=== PATIENT | male | born 1990 | race Caucasian/White ===

== ENCOUNTER 2016-10-24 22:31 | Emergency (ER) | payer OTHER ==
[~2016-10-24] VITALS: Ht 172.7 cm; Wt 83.3 kg
[2016-10-24 22:34] VITALS: Ht 172.7 cm; Wt 83.3 kg
[2016-10-24] MEDS ORDERED: CEPH500C PO (22:45)
[2016-10-24] MEDS ORDERED: CEPHALEXIN 500MG HOME PACK 1 EA BTL PO ONE (22:45)
[2016-10-24] MEDS ORDERED: SULF800T23 PO (22:45)
[2016-10-24] MEDS ORDERED: SEPTRA DS HOME PACK 1 EA VIAL PO ONE (22:45)
--- NOTE | 2016-10-24 22:50 | EMERGENCY ROOM VISIT NOTE ---
History First contact with patient: 22:36 Chief Complaint: OTHER COMPLAINT Stated Complaint: PIMPLE ON FOREHEAD, SWOLLEN, RING AROUND IT History of Present Illness The patient is a 26 year old male who presents to the Emergency Room with complaints of a swollen pimple on his left forehead region. The patient reports noticing a pimple 2 days ago. He tried to squeeze it yesterday without any drainage. He then reports that the redness and swelling significantly worsened. He denies any fevers, chills or headache. He reports having similar pimples that frequent break out on his back, but never his face. He denies any prior history of MRSA. He currently denies any pain. Review of Systems 10 system review was performed and was negative except for pertinent positives and negatives as indicated in history of present illness Past Medical/Surgical History Medical Problems: (1) No significant past medical history Family History Cancer Social History Smoking Status: Never Smoker Alcohol Use: occasionally Drug Use: none Marital Status: single Housing Status: lives with roommate Occupation Status: employed Current/Historical Medications Scheduled Cephalexin Monohydrate (Keflex), 500 MG PO QID Sulfa/Trimethoprim (Bactrim Ds 800MG/160MG), 1 TAB PO BID Allergies Coded Allergies: No Known Allergies (Unverified Allergy, Mild, 04/26/06) Physical Exam Vital Signs Date Time Temp Pulse Resp B/P Pulse Ox O2 Delivery O2 Flow Rate FiO2 10/24/16 22:34 36.9 92 18 156/85 96 Room Air Physical Exam CONSTITUTIONAL: Healthy and well nourished. Alert and oriented X 3 with positive affect. HEENT: Examination shows a pea-sized nodule on the left forehead. No purulent drainage, pointing, fluctuance or significant peripheral induration noted. Mild nasal erythema is noted. Pupils equal, round and reactive. EOMs intact without discomfort. NECK: Full active range of motion without discomfort. LYMPHATICS: No cervical chain adenopathy. RESPIRATORY: Clear to auscultation bilaterally with no wheezing, crackles, rhonchi or stridor. CARDIOVASCULAR: Regular rate and rhythm with no murmurs, rubs or gallops. INTEGUMENTARY: No rash or other significant dermatologic conditions noted. NEUROLOGIC: No focal neurologic deficits noted. Facial sensations are intact. Medical Decision & Procedures ED Course Patient history and physical exam were performed. Nurse's notes were reviewed. The patient was provided a home pack and prescription for Keflex and Bactrim DS antibiotics. The patient was encouraged to apply a warm moist compress, and bacitracin bandage to help promote drainage. Ibuprofen and Tylenol as needed for pain. Return to the emergency department for any progressively worsening infection or fever. The patient was happy with plan of care, voiced understanding of all discharge instructions, and denied any pain at the time of discharge. Medical Decision Impression Primary Impression: Facial cellulitis Departure Information Dispostion Home / Self-Care Prescriptions Sulfa/Trimethoprim (Bactrim Ds 800MG/160MG) Tab 1 TAB PO BID, #14 TAB Prov: Vlad Perez PA 10/24/16 Cephalexin Monohydrate (Keflex) 500 Mg Cap 500 MG PO QID for 7 Days, #28 CAP Prov: Vlad Perez PA 10/24/16 Forms HOME CARE DOCUMENTATION FORM, IMPORTANT VISIT INFORMATION Patient Instructions [facility] Additional Instructions Complete all Keflex and Bactrim DS antibiotics as prescribed. Intermittently apply a warm moist compress, and apply an antibiotic ointment and bandage to keep the area soft in order to promote drainage. Ibuprofen 800 mg and/or Tylenol 1000 mg every 8 hours. You may also alternate these medications for more effective pain relief: Ibuprofen --4 HRS--> Tylenol --4 HRS--> ibuprofen --4 HRS--> Tylenol .... Return to the emergency department for any progressively worsening infection or developing fever.
[2016-10-24 22:59] VITALS: BP 156/85; PULSE 92; TEMP 36.9; O2SAT 96
== END 2016-10-24 23:00 | disposition home or self-care (01) ==
LOC: C.EDB 22:34 → C.EDA 23:00
DX: L03.211 Cellulitis of face (principal)

== ENCOUNTER 2017-02-11 21:43 | Emergency (ER) | payer OTHER ==
[~2017-02-11] VITALS: Ht 170.2 cm; Wt 81.2 kg
[~2017-02-11 21:43] MED LIST: SULF800T23 PO
[2017-02-11 21:48] VITALS: BP 142/80; PULSE 89; TEMP 36.7; O2SAT 97; Ht 170.2 cm; Wt 81.2 kg
--- NOTE | 2017-02-11 22:14 | DIAGNOSTIC IMAGING REPORT ---
LEFT ANKLE MIN 3 VIEWS ROUTINE CLINICAL HISTORY: Left ankle pain COMPARISON: None FINDINGS: Alignment of the left ankle is anatomic. No fracture or osseous lesion is identified. Talar dome is intact. Joint spaces are preserved. There is mild lateral ankle soft tissue swelling. IMPRESSION: 1. No acute fracture or dislocation of the left ankle. 2. Mild lateral ankle soft tissue swelling. Electronically signed by: Jeff Mcarthur M.D. 02/11/2017 10:13 PM Dictated Date/Time: 02/11/2017 10:12 PM
--- NOTE | 2017-02-11 22:35 | EMERGENCY ROOM VISIT NOTE ---
ED Visit Note First contact with patient: 21:53 Chief complaint: Left ankle pain. HPI: This 26-year-old white male presents to the emergency room for evaluation of his left ankle. The patient injured the ankle on evening when he inverted the ankle and had immediate onset of pain. Since that time, they have had persistent pain over the lateral portion of the ankle. He denies any numbness or tingling. Pain is worse with weight-bearing. He has been walking with a limp. no knee or hip pain. No pop or snap with injury. Treatment has consisted of ice provided in the ER. No prior history of significant ankle injury. Lateral swelling has developed. Pain is 7/10. REVIEW OF SYSTEM: HEENT: No dizziness, visual problems, hearing loss, tinnitus. There is no difficulty swallowing and no oral lesions are present. PULMONARY: No cough, shortness of breath, sputum production or hemoptysis. CARDIOVASCULAR: No chest pain, palpitations, shortness of breath or peripheral edema. GASTROINTESTINAL: No diarrhea, constipation, nausea, vomiting, or abdominal pain. GENITOURINARY: No dysuria, frequency, urgency or nocturia. NEUROLOGIC: No weakness, muscle tenderness, epilepsy or history of neurological problems. MUSCULOSKELETAL: No history of joint tenderness/swelling. No history of arthritis or arthralgias. SKIN: No rashes or lesions. ENDOCRINE: No history of diabetes, thyroid disorders, abnormal hair growth. PAST MEDICAL HISTORY: Supplemental sheet was reviewed and signed. 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 Single. Positive EtOH use. PHYSICAL EXAM: Vitals: Afebrile. Reviewed and filed in patient's chart General: Well-developed, well-nourished, young white male, in obvious discomfort. No acute distress. He is sitting on a bed. Alert and oriented. Skin:Warm and dry with good turgor. No rashes or lesions. No erythema. The patient is not diaphoretic. No abrasions. Edema is present over the lateral ankle. Musculoskeletal: Left ankle evaluation reveals no pain with palpation across the knee or proximal tibia or fibula. There is pain with palpation over the lateral malleolus and the lateral ligaments. No pain over the medial malleolus or deltoid ligament. Achilles' tendon is palpated to its entirety and found to be intact and without defect. Normal David test. No pain with palpation of the calcaneus, fifth metatarsal base, midfoot, forefoot, or toes. Motor function to the toes is intact and unremarkable. Motor function to the ankle is intact but range of motion is limited by pain. Strength is 5/5 for resisted motion. Neurologic: Gross sensation is intact across all aspects of the foot and ankle via soft touch. Peripheral pulses are 2+. Data: Radiographic images of the ankle were obtained today and were reviewed by me as well as radiology. They are unremarkable for fracture or other bony abnormality. IMPRESSION: Left ankle sprain. PLAN: The patient was educated regarding today's findings. Conservative care measures were discussed. Patient was given compressigrip for edema control and will use this for the next 5 days. Ankle gel splint was also applied and will be used for support for the next 3 weeks. It may be removed for bathing and sleep. It should be used for a few additional weeks for sporting events only. Crutches were fitted and crutch instruction was reviewed. Discontinue crutch use when he is able to walk without a limp. Weight-bear as tolerable. Gentle motion daily. Ice and elevate intermittently over the next 3 days, after which they may switch to moist heat. Lower leg should be elevated at night during sleep. Tylenol and ibuprofen every 6 hours as needed for discomfort. Sprain handout was provided. Return to the ER for any acute changes. Follow-up with his PCP or orthopedist if not improving in 5 to 7 days. Current/Historical Medications No Active Prescriptions or Reported Meds Allergies Coded Allergies: No Known Allergies (Unverified , 10/24/16) Vital Signs Date Time Temp Pulse Resp B/P (MAP) Pulse Ox O2 Delivery O2 Flow Rate FiO2 02/11/17 21:48 36.7 89 16 142/80 97 Room Air Departure Information Prescriptions No Active Prescriptions or Reported Meds Referrals No Doctor, Assigned (PCP) Forms HOME CARE DOCUMENTATION FORM, IMPORTANT VISIT INFORMATION Patient Instructions [facility] [employer] [place] [employer]
== END 2017-02-11 23:05 | disposition home or self-care (01) ==
LOC: C.EDB 21:44 → C.EDD 23:05
DX: S93.402A Sprain of unspecified ligament of left ankle, initial encounter (principal); X58.XXXA Exposure to other specified factors, initial encounter

== ENCOUNTER 2022-11-03 01:00 | Inpatient (IN) ==
[2022-11-03] MEDS ORDERED: ONDANSETRON INJ 2 MG/ML 2 ML VIAL IV STA (01:19)
[2022-11-03] MEDS ORDERED: MoRPHine SULFATE 4 MG/ML 1 ML CARP\\VIAL IV PRN ×3 (01:19→15:59)
[2022-11-03] MEDS ORDERED: SODIUM CHLORIDE 0.9% 1000ML 1,000 ML IV SCH (01:30)
[2022-11-03 01:57] LABS: Basophils # (auto) 0.03 K/uL (0-0.2); Basophils % (auto) 0.5 %; Eosinophils # (auto) 0.07 K/uL (0-0.50); Eosinophils % (auto) 1.1 %; Hematocrit (blood only) 44.9 % (42.0-52.0); Hemoglobin 15.4 g/dl (14.0-18.0); Lymphocytes # (auto) 2.82 K/uL (1.2-3.4); Lymphocytes % (auto) 44.5 %; Mean Corpuscular Hemoglobin 31.2 pg (25.0-34.0); Mean Corpuscular Hgb Conc 34.3 g/dL (32.0-36.0); Mean Corpuscular Volume 91.1 fL (80.0-100.0); Mean Platelet Volume 9.3 fL (9.4-12.4); Monocytes # (auto) 0.49 K/uL (0.11-0.59); Monocytes % (auto) 7.7 %; Neutrophils # (auto) 2.93 K/uL (1.40-6.50); Neutrophils % (auto) 46.2 %; Platelet Count 250 K/uL (130-400); RDW Standard Deviation 40.2 fL (36.4-46.3); Red Blood Count 4.93 M/uL (4.70-6.10); White Blood Count 6.34 K/ul (4.8-10.8)
--- NOTE | 2022-11-03 02:18 | Emergency Department Note ---
History of Present Illness General Chief complaint: Abdominal Pain Stated complaint: STOMACH PAIN,SHARP PAIN Time Seen by Provider: 11/03/22 01:12 History of Present Illness Maximum Pain Intensity: 10 This is a 32-year-old male presenting to the emergency department for evaluation of right-sided abdominal pain that he rates a 10/10. The patient states that he was asleep and awoke with the pain. The pain does not seem to radiate but is primarily on the right side of the abdomen. He is nauseated without vomiting. He has never had pain like this in the past. The patient is usually healthy. He has not taken anything [id number] for symptoms. He does not report a history of abdominal surgery in the past. No recent travel history. No fevers. Home Medications Medication Instructions Recorded Confirmed Type calcium carbonate 200 mg calcium 400 - 600 mg PO DIRECTED PRN GI 11/03/22 11/03/22 History (500 mg) chewable tablet (Tums) UPSET/INDIGESTION/HEARTBURN Allergies Allergy/AdvReac Type Severity Reaction Status Date / Time ampicillin Allergy Intermediate HIVES Verified 11/03/22 01:30 sulbactam Allergy Intermediate HIVES Verified 11/03/22 01:30 Past Med/Surg History Medical History No significant medical problems Surgical History History of surgery on arm Social History Smoking Status: Current every day smoker Tobacco Type: Cigarettes Preferred Language: Bengali Feels Safe at Home: Yes Review of Systems A total of 10 systems reviewed and were otherwise negative Physical Exam Vital Signs Vital Signs - 24 hr 11/03/22 01:06 11/03/22 01:46 11/03/22 01:46 Temperature 36.8 C Temperature Source Temporal Artery Scan Pulse Rate 71 57 L 63 Respiratory Rate 18 18 Respiratory Effort / Characteristics Non-Labored Spontaneous Respiratory Depth Normal Respiratory Pattern Regular Blood Pressure 127/73 127/72 Blood Pressure Mean 91 90 Blood Pressure Position Sitting Pulse Oximetry 100 96 Oxygen Delivery Method Room Air Room Air Sepsis Recent Fever Within 48 Hours No Sepsis New/Unexplained Change in Mental Status N/A Sepsis Action Taken by Nursing No Action Required 11/03/22 02:00 11/03/22 02:30 11/03/22 03:00 Temperature Temperature Source Pulse Rate 53 L 64 68 Respiratory Rate 13 18 17 Respiratory Effort / Characteristics Respiratory Depth Respiratory Pattern Blood Pressure 126/64 124/68 124/73 Blood Pressure Mean 84 86 90 Blood Pressure Position Pulse Oximetry 97 98 98 Oxygen Delivery Method Room Air Room Air Room Air Sepsis Recent Fever Within 48 Hours Sepsis New/Unexplained Change in Mental Status Sepsis Action Taken by Nursing 11/03/22 03:30 11/03/22 04:00 11/03/22 04:30 Temperature Temperature Source Pulse Rate 58 L 64 59 L Respiratory Rate 17 19 15 Respiratory Effort / Characteristics Respiratory Depth Respiratory Pattern Blood Pressure 124/73 127/68 136/72 Blood Pressure Mean 90 87 93 Blood Pressure Position Pulse Oximetry 96 97 97 Oxygen Delivery Method Room Air Room Air Room Air Sepsis Recent Fever Within 48 Hours Sepsis New/Unexplained Change in Mental Status Sepsis Action Taken by Nursing VITALS: Vitals are noted on the nurse's note and reviewed by myself. Vital signs stable. GENERAL: Well-developed, well-nourished, white male, who is moderately uncomfortable appearing on exam. He is splinting the right side abdomen. HEAD: Normocephalic atraumatic. NECK: Supple without nuchal rigidity. No lymphadenopathy. No thyromegaly. Cervical spine is nontender. HEART: Regular rate and rhythm without murmurs gallops or rubs. LUNGS: Clear to auscultation bilaterally without wheezes, rales or rhonchi. No retractions or accessory muscle use. ABDOMEN: Positive normal bowel sounds x 4. Soft, with moderate right-sided tenderness on palpation. No lower tenderness. No rebound tenderness. Course Administered Medications Lactated Ringer's (Lr) 1,000 mls @ 100 mls/hr IV .Q10H VALENTINA Stop: 12/03/22 04:29 Last Admin: 11/03/22 05:01 Dose: 100 mls/hr Documented By: ANNIE Ciprofloxacin (Cipro / D5w) 400 mg in 200 mls @ 100 mls/hr IV NOW STA; Protocol Stop: 11/03/22 06:22 Last Admin: 11/03/22 05:01 Dose: 100 mls/hr Documented By: ANNIE Morphine Sulfate (Morphine Sulfate 4 Mg/Ml 1 Ml Carp\Vial) 4 mg IV Q30M PRN PRN Reason: Pain Stop: 11/17/22 01:18 Last Admin: 11/03/22 01:37 Dose: 4 mg Documented By: ANNIE Discontinued Medications Sodium Chloride (Nss 1000ml) 1,000 mls @ 999 mls/hr IV .Q1H1M VALENTINA Stop: 11/03/22 02:30 Last Infusion: 11/03/22 02:50 Dose: 0 mls/hr Documented By: Admin: 11/03/22 01:38 Dose: 999 mls/hr Documented By: ANNIE Ioversol (Optiray 350 100ml) 100 ml IV ONCE ONE Stop: 11/03/22 03:18 Last Admin: 11/03/22 03:18 Dose: 86 ml Documented By: ALEKSANDRA Ondansetron HCl (Ondansetron Inj 2 Mg/Ml 2 Ml Vial) 4 mg IV NOW STA Stop: 11/03/22 01:20 Last Admin: 11/03/22 01:37 Dose: 4 mg Documented By: ANNIE Medical Decision Making Differential Diagnosis Differential diagnosis: Etiologies such as biliary colic, cholecystitis, hepatitis, pancreatitis, cardiac disease, pancreatitis, gastritis, peptic ulcer disease, appendicitis, cystitis, diverticulitis, mesenteric ischemia, inflammatory bowel disease, i leus, bowel obstruction, testicular/adnexal torsion, aortic pathology, shingles, as well as others were considered Laboratory Data 11/03/22 01:39 11/03/22 01:39 Lab Results 11/03/22 11/03/22 Range/Units 01:39 01:39 WBC 6.34 (4.8-10.8) K/ul RBC 4.93 (4.70-6.10) M/uL Hgb 15.4 (14.0-18.0) g/dl Hct 44.9 (42.0-52.0) % MCV 91.1 (80.0-100.0) fL MCH 31.2 (25.0-34.0) pg MCHC 34.3 (32.0-36.0) g/dL RDW Std Deviation 40.2 (36.4-46.3) fL RDW Coeff of Mlalory 12.0 (11.5-14.5) % Plt Count 250 (130-400) K/uL MPV 9.3 L (9.4-12.4) fL Immature Gran % (Auto) 0.0 % Neut % (Auto) 46.2 % Lymph % (Auto) 44.5 % [place] % (Auto) 7.7 % Eos % (Auto) 1.1 % Baso % (Auto) 0.5 % Neut # (Auto) 2.93 (1.40-6.50) K/uL Lymph # (Auto) 2.82 (1.2-3.4) K/uL [place] # (Auto) 0.49 (0.11-0.59) K/uL Eos # (Auto) 0.07 (0-0.50) K/uL Baso # (Auto) 0.03 (0-0.2) K/uL Immature Gran # (Auto) 0.00 L (0.01-0.20) K/uL Sodium 140 (136-145) mmol/L Potassium 3.6 (3.5-5.1) mmol/L Chloride 104 (98-107) mmol/L Carbon Dioxide 31 (21-32) mmol/L Anion Gap 5 (3-11) BUN 16 (6-23) mg/dl Creatinine 1.23 (0.6-1.4) mg/dl Est Cr Clr Drug Dosing 93.1 ml/min Est GFR ( Amer) 90.1 ml/min Est GFR (Non-Af Amer) 77.7 ml/min BUN/Creatinine Ratio 13.0 (10-20) Glucose 118 H (70-99(Fasting)) mg/dl Calcium 10.0 (8.5-10.1) mg/dl Magnesium 2.0 (1.7-2.4) mg/dl Total Bilirubin 0.7 (0.2-1.0) mg/dl AST 38 (13-39) U/L ALT 64 H (7-52) U/L Alkaline Phosphatase 59 (34-104) U/L Total Protein 7.5 (6.0-8.3) gm/dl Albumin 4.6 (3.4-5.0) gm/dl Globulin 2.9 (2.5-4.0) gm/dl Albumin/Globulin Ratio 1.6 (0.9-2) Lipase 10 L (11-82) U/L Imaging Data Radiologist's Impression: Abdomen/Pelvis CT 11/03/22 01:19 CR Exam(s): CT ABDOMEN + PELVIS With Contrast IV Amt: 86 ml optiray 350 EXAM: CT Abdomen and Pelvis With Intravenous Contrast CLINICAL HISTORY: Reason for exam: right flank/ruq abd pain. TECHNIQUE: Axial computed tomography images of the abdomen and pelvis with intravenous contrast. CTDI is 9.35 mGy and DLP is 472.92 mGy-cm. CONTRAST: Patient received 86 ml optiray 350 of IV contrast COMPARISON: No relevant prior studies available. FINDINGS: Lung bases: Unremarkable. No mass. No consolidation. ABDOMEN: Liver: Unremarkable. No mass. Gallbladder and bile ducts: Cholelithiasis with gallbladder wall thickening. Findings can be seen with cholecystitis. Consider HIDA imaging if there is further concern. No ductal dilation. Pancreas: Unremarkable. No mass. No ductal dilation. Spleen: Unremarkable. No splenomegaly. Adrenals: Unremarkable. No mass. Kidneys and ureters: Unremarkable. No obstructive calculus in the interpolar left kidney measuring up to 7 mm. Stomach and bowel: Unremarkable. No mucosal thickening. No evidence of bowel obstruction. PELVIS: Appendix: Normal appendix. Bladder: Unremarkable. No mass. Reproductive: Unremarkable as visualized. ABDOMEN and PELVIS: Intraperitoneal space: Unremarkable. No free air. No significant fluid collection. Bones/joints: No acute fracture. No dislocation. Soft tissues: Unremarkable. Vasculature: Unremarkable. No abdominal aortic aneurysm. Lymph nodes: Unremarkable. No enlarged lymph nodes. IMPRESSION: Cholelithiasis with gallbladder wall thickening. Findings can be seen with cholecystitis. Consider HIDA imaging if there is further concern. Communications: Verify Receipt Electronically signed by: Sebastian Urban MD 11/03/22 03:57 AM [facility] Narrative Physical exam and history were performed. Nursing notes, EMR, and Medication List were personally reviewed. No social concerns were identified as barriers to patients care. Patient appears to have right-sided abdominal pain bringing him to the ER. He is uncomfortable on presentation. IV access was established and labs were obtained. He was hydrated normal saline and given IV morphine and IV Zofran for comfort. Because of his symptoms he was sent to CT scan for imaging. Blood work is as above and was reviewed. He does not have a significantly elevated white blood cell count, gross anemia, bandemia, or significant electrolyte imbalance. Lipase and transaminases are not diagnostic. CT scan was performed and informally interpreted myself and read by radiology. Imaging does show a large gallstone and findings concerning for acute cholecystitis. Patient was updated regarding his findings. Clinically he does seem to have acute cholecystitis. His pain is well controlled with the morphine. COVID swab was performed. Case was discussed with the on-call surgical team. Patient was evaluated at bedside by Ike Rodgers PA-C. Please see Mr. Claudio's dictation for further patient course, plan, and disposition. The chart was completed utilizing [employer] Voice Recognition Software. Grammatical errors, random word insertions, pronoun errors, and incomplete sentences are an occasional consequence of this system due to software limitations, ambient noise, and hardware issues. Any formal questions or concerns about the content, text, or information contained within the body of this dictation should be directly addressed to the provider for clarification. . Impression & Plan Acute cholecystitis Discharge Plan Visit Data Chief Complaint: Abdominal Pain Stated Complaint: STOMACH PAIN,SHARP PAIN ED Provider: Dea Hughes ED Midlevel Provider: Antnoi Tyler Discharge Problem: Acute cholecystitis Forms Stand Alone Forms: [facility] [address] Prescriptions Prescriptions: No Action calcium carbonate [Tums] 200 mg calcium (500 mg) Tablet,Chewable 400 - 600 mg PO DIRECTED PRN (Reason: GI UPSET/INDIGESTION/HEARTBURN) Referrals Referrals: PCP,NO [Primary Care Provider] -
[2022-11-03 02:52] LABS: Albumin Globulin Ratio 1.6 (0.9-2); Albumin Level 4.6 gm/dl (3.4-5.0); Bilirubin,Total 0.7 mg/dl (0.2-1.0); Creatinine Clr Calc Pharmacy 93.1 ml/min; Est GFR (African American) 90.1 ml/min; Est GFR (Non-African American) 77.7 ml/min; Globulin 2.9 gm/dl (2.5-4.0); Potassium 3.6 mmol/L (3.5-5.1); Total Protein 7.5 gm/dl (6.0-8.3)
[2022-11-03] MEDS ORDERED: OPTIRAY 350 100ml IV ONE (03:17)
--- NOTE | 2022-11-03 03:58 | CT Scan Report ---
Exam(s): CT ABDOMEN + PELVIS With Contrast IV Amt: 86 ml optiray 350 EXAM: CT Abdomen and Pelvis With Intravenous Contrast CLINICAL HISTORY: Reason for exam: right flank/ruq abd pain. TECHNIQUE: Axial computed tomography images of the abdomen and pelvis with intravenous contrast. CTDI is 9.35 mGy and DLP is 472.92 mGy-cm. CONTRAST: Patient received 86 ml optiray 350 of IV contrast COMPARISON: No relevant prior studies available. FINDINGS: Lung bases: Unremarkable. No mass. No consolidation. ABDOMEN: Liver: Unremarkable. No mass. Gallbladder and bile ducts: Cholelithiasis with gallbladder wall thickening. Findings can be seen with cholecystitis. Consider HIDA imaging if there is further concern. No ductal dilation. Pancreas: Unremarkable. No mass. No ductal dilation. Spleen: Unremarkable. No splenomegaly. Adrenals: Unremarkable. No mass. Kidneys and ureters: Unremarkable. No obstructive calculus in the interpolar left kidney measuring up to 7 mm. Stomach and bowel: Unremarkable. No mucosal thickening. No evidence of bowel obstruction. PELVIS: Appendix: Normal appendix. Bladder: Unremarkable. No mass. Reproductive: Unremarkable as visualized. ABDOMEN and PELVIS: Intraperitoneal space: Unremarkable. No free air. No significant fluid collection. Bones/joints: No acute fracture. No dislocation. Soft tissues: Unremarkable. Vasculature: Unremarkable. No abdominal aortic aneurysm. Lymph nodes: Unremarkable. No enlarged lymph nodes. IMPRESSION: Cholelithiasis with gallbladder wall thickening. Findings can be seen with cholecystitis. Consider HIDA imaging if there is further concern. Communications: Verify Receipt Electronically signed by: Sebastian Urban MD 11/03/22 03:57 AM
[2022-11-03] MEDS ORDERED: CIPROFLOXACIN / D5W 400 MG/200 ML BAG IV STA (04:23)
[2022-11-03] MEDS ORDERED: ONDANSETRON INJ 2 MG/ML 2 ML VIAL IV PRN ×2 (04:23→12:53)
[2022-11-03] MEDS ORDERED: ACETAMINOPHEN 1,000 MG/100 ML VIAL IV PRN (04:23)
--- NOTE | 2022-11-03 04:23 | History & Physical Report ---
Date of Service November 03, 2022 Assessment & Plan (1) Cholecystitis: Plan: Due to the patient's imaging and clinical presentation we will admit him to the hospital proceeding as follows: We will implement n.p.o. status Provide analgesics Provide antiemetics We will provide IV fluid for hydration We will initiate antibiotics in the form of Cipro and Flagyl; will use these medications as he is allergic to penicillin We will get a gallbladder ultrasound to better delineate his biliary anatomy As it does appear the patient has acute cholecystitis and has cholelithiasis on CT scan we will tentatively plan on cholecystectomy with Dr. Saldana today. Additional recommendations to be forthcoming based on operative findings and his postoperative recovery thereafter We will use SCDs for DVT prevention, no chemical means due to planned surgery He will be a level 1 full code History of Present Illness Chief Complaint: Abdominal pain Primary Care Provider: NO PCP This is a 32-year-old male who presented to [facility] secondary to abdominal pain. He notes that the pain woke him up from sleep and was really unrelated to anything he ate last evening. He does note over the past several months when he does eat "greasy" foods he has been getting some right upper quadrant pain. He notes that in the past this pain was usually self-limiting and will resolve. He notes last night that his abdominal pain was much more severe and unremitting than what he usually experiences so he p resented to the emergency department. He notes that the pain was located primarily in the right upper quadrant without radiation. He does not note any provocative factors. He does not note any palliative factors. He has never had abdominal surgery in the past. With his current presentation he did not have any fevers, shakes, or chills. He did not have any nausea or vomiting. Since arrival to the emergency department at [facility] the patient has had labs and imaging which I independently reviewed. CT scan of the abdomen and pelvis showed the patient had cholelithiasis with gallbladder wall thickening. These findings were concerning for cholecystitis. Labs include a CBC were white blood cell count, hemoglobin, hematocrit, and platelet count were all normal. Chemistry profile showed sodium, potassium, BUN, and creatinine were all normal. There is no elevation of patient's bilirubin alkaline phosphatase or AST. His ALT had a slight elevation at 64. Lipase was nonelevated. A COVID test has been ordered and is pending. At the time of my interview the patient was resting comfortably in bed and he is in no distress. Concerning past medical history the patient denies any medical problems Concerning past surgical history he denies any abdominal surgeries but notes that he did have some minor excision performed on his left upper extremity. Allergies Allergy/AdvReac Type Severity Reaction Status Date / Time ampicillin Allergy Intermediate HIVES Verified 11/03/22 01:30 sulbactam Allergy Intermediate HIVES Verified 11/03/22 01:30 Home Medications Medication Instructions Recorded Confirmed Type calcium carbonate 200 mg calcium 400 - 600 mg PO DIRECTED PRN GI 11/03/22 11/03/22 History (500 mg) chewable tablet (Tums) UPSET/INDIGESTION/HEARTBURN Past Med/Surg History Medical History No significant medical problems Surgical History History of surgery on arm Social History Smoking Status: Current every day smoker Tobacco Type: Cigarettes Do You Dip or Chew Tobacco: Yes; Hx Alcohol Use: No Hx Substance Use: Yes Preferred Language: Filipino Communication Ability: Effective Nut Picker Required: No Beliefs That Will Affect Care: None Current Living Situation: Spouse Other Information That Helps Us Care for You: No Feels Safe at Home: Yes Safety Concerns: Feels Safe At This Time Assistive Devices: None Review of Systems Constitutional: no fever and no chills Eyes: no eye pain Ear, Nose, Mouth, Throat: no ear pain Respiratory: no cough and no dyspnea Cardiovascular: no chest pain Gastrointestinal: as per Subjective / HPI Genitourinary: no dysuria Musculoskeletal: no back pain Integumentary: no rash Neurologic: no localized weakness Physical Exam Constitutional: WD/WN, vitals as above Eyes: + anicteric sclerae; no conjunctival abnormality ENMT: Ears: no hearing impairment and no external ear abnormality No sublingual jaundice Neck: trachea midline Respiratory: normal respiratory effort; no respiratory distress and no labored breathing Cardiovascular: Rate/Rhythm: regular rate and regular rhythm Gastrointestinal (Abdomen): Abdomen is soft, nonrigid, and nondistended. There is no rebound tenderness or guarding. There is slight pain with palpation in the right upper quadrant. Musculoskeletal: No calf tenderness Skin: no rashes and no jaundice Neurologic: moves all extremities Psychiatric: A+Ox3, euthymic affect Results & Data Results & Data ([facility]) Vital Signs (Past 12 Hours) Vital Signs Temp Pulse Resp BP Pulse Ox O2 Del Method 11/03/22 02:00 53 L 13 126/64 97 Room Air 11/03/22 01:46 63 18 127/72 96 Room Air 11/03/22 01:46 57 L 11/03/22 01:06 36.8 C 71 18 127/73 100 Room Air Supervising Physician Co-Signing Physician Notes Patient seen and examined, labs and imaging reviewed, agree with above. 32-ye ar-old male admitted with cholecystitis. On exam he is afebrile stable vitals. His pain is resolved. Ultrasound reviewed and agree with the assessment of some gallbladder wall thickening associated with gallstones. Plan for laparoscopic cholecystectomy with possible cholangiogram Risk the procedure were discussed to include but not limited to bleeding, infection, retained stone, bile leak, damage surrounding structures, need for future more extensive surgery, conversion open, and the risk of anesthesia Likely discharge this afternoon Wound care instructions and activity restrictions reviewed, return precautions given, follow-up in 2 weeks PG Care Time/CCT Total # of Minutes Spent Total Time Spent with Patient: Total time spent is greater than 50% in coordination of care (as documented) at patient's floor/unit and/or counseling patient: Coding Level of Care Code 14303 INT INP/OBS CARE MIN Diagnoses Cholecystitis K81.9
[2022-11-03] MEDS ORDERED: metroNIDAZOLE 500 MG/100 ML BAG IV STA (04:30)
[2022-11-03] MEDS: LACTATED RINGER'S 1,000 ML IV SCH ×2 (05:01→16:00)
--- NOTE | 2022-11-03 05:58 | Ultrasound Report ---
Exam(s): US GALLBLADDER EXAM: US Abdomen Limited, Right Upper Quadrant CLINICAL HISTORY: Reason for exam: gallstones. TECHNIQUE: Real-time ultrasound of the right upper quadrant with image documentation. COMPARISON: Prior CT abdomen/pelvis dated November 03, 2022. FINDINGS: Liver: The liver measures 16.0 cm in length. No intrahepatic bile duct dilation. Gallbladder: Cholelithiasis with wall thickening measuring 5 mm. Edema noted within the gallbladder wall. Findings can be seen with cholecystitis, as seen on prior CT abdomen/pelvis. Recommend HIDA imaging if there is further concern. Common bile duct: The common duct measures 3 mm. No stones. No dilation. Pancreas: Unremarkable as visualized. Right kidney: Unremarkable. No stones. No solid mass. No hydronephrosis. IMPRESSION: 1. Cholelithiasis with wall thickening measuring 5 mm. Edema noted within the gallbladder wall. Findings can be seen with cholecystitis, as seen on prior CT abdomen/pelvis. Recommend HIDA imaging if there is further concern. Electronically signed by: Sebastian Urban MD 11/03/22 05:57 AM
[2022-11-03 06:02] LABS: Appearance Urine Clear (Clear); Bilirubin Urine Negative (Negative); Blood Urine Negative (Negative); Color Urine Yellow; Glucose Urine UA Negative (Negative); Ketones Urine Negative (Negative); Leukocyte Esterase Urine Negative (Negative); Nitrite Urine Negative (Negative); Protein Urine Negative (Negative); Specific Gravity Urine > 1.045 (1.000-1.030); Urobilinogen Urine Negative (Negative)
[2022-11-03] MEDS ORDERED: CIPROFLOXACIN / D5W 400 MG/200 ML BAG IV SCH ×2 (09:15→17:00)
[2022-11-03] MEDS ORDERED: ATROPINE SULFATE 0.1 MG/ML 10ML SYR IV PRN (12:53)
[2022-11-03] MEDS ORDERED: ePHEDrine sulfate 50 MG/ML AMP IV PRN (12:53)
--- NOTE | 2022-11-03 12:53 | Anesthesiology Consultation ---
Date of Service November 03, 2022 Assessment & Plan Chart Review Chart Review: Acceptable Risk for Surgery Consults Requested none ASA ASA2 Proposed Anesthesia Anesthesia Type: General Risk / Benefits Reviewed With: PT / POA / Parent / Guardian, Accepts Plan and Informed Consent Obtained History Surgery Operation Date: 11/03/22 12:50 Proposed Procedures p Laparoscopic Cholecystectomy Possible Open - Arsen Saldana, DO, FACS Height/Weight Height: 5 ft 8 in Weight: 86.183 kg Allergies Allergy/AdvReac Type Severity Reaction Status Date / Time ampicillin Allergy Intermediate HIVES Verified 11/03/22 01:30 sulbactam Allergy Intermediate HIVES Verified 11/03/22 01:30 Medications Home Medications Medication Instructions Recorded Confirmed Last Taken calcium carbonate 200 mg calcium 400 - 600 mg PO DIRECTED PRN GI 11/03/22 11/03/22 11/02/22 (500 mg) chewable tablet (Tums) UPSET/INDIGESTION/HEARTBURN Active Medications Generic Name Dose Route Start Last Admin Trade Name Freq PRN Reason Stop Dose Admin Lactated Ringer's 1,000 mls @ 100 mls/hr 11/03/22 04:30 11/03/22 12:20 Lr IV 12/03/22 04:29 0 mls/hr .Q10H [facility] Infusion Morphine Sulfate 3 mg 11/03/22 04:23 11/03/22 10:15 Morphine Sulfate 4 Mg/Ml 1 Ml Carp\Vial IV 11/17/22 04:22 3 mg Q3H PRN Administration Pain NPO Date Last Intake of Fluids: 11/02/22 Time Last Intake of Fluids: 21:00 Date Last Intake of Solids: 11/02/22 Time Last Intake of Solids: 21:00 Past Medical History Medical History No significant medical problems Exercise / Class Metabolic Activity II 4-5 Yardwork/Stairs/Walk up hill Past Surgical History Surgical History History of surgery on arm Past Anesthesia History No Hx of Anesthesia Complications and No Family Hx of Anesthesia Complications History of PONV No Hx of PONV and No Hx of Motion Sickness Social History Smoking Status: Current every day smoker tobacco type: cigarettes and smokeless tobacco Do You Dip or Chew Tobacco: Yes Hx Alcohol Use: No Hx Substance Use: Yes substance use type: marijuana Physical Exam Vital Signs Last Vital Signs Temp 36.4 C L 11/03/22 12:29 Pulse 72 11/03/22 12:29 Resp 18 11/03/22 12:29 BP 149/81 H 11/03/22 12:29 Pulse Ox 98 11/03/22 12:29 O2 Del Method Room Air 11/03/22 12:29 Constitutional no acute distress ENMT Thyromental Distance: > or= 3.5 Finger Breadths Mallampati Class: II Neck normal visual inspection Respiratory normal respiratory effort; no respiratory distress Auscultation: lungs clear to auscultation bilaterally Cardiovascular Rate/Rhythm: regular rate and regular rhythm Heart Sounds: no murmur Psychiatric Orientation: alert and oriented x 3 Testing Laboratory Results 11/03/22 01:39 11/03/22 01:39 Urine Color Yellow 11/03/22 05:15 Urine Appearance Clear (Clear) 11/03/22 05:15 Urine pH 6.0 (4.5-7.5) 11/03/22 05:15 Ur Specific [place] > 1.045 (1.000-1.030) H 11/03/22 05:15 Urine Protein Negative (Negative) 11/03/22 05:15 Urine Glucose (UA) Negative (Negative) 11/03/22 05:15 Urine Ketones Negative (Negative) 11/03/22 05:15 Urine Nitrite Negative (Negative) 11/03/22 05:15 Ur Leukocyte Esterase Negative (Negative) 11/03/22 05:15
[2022-11-03] MEDS ORDERED: ONDANSETRON INJ 2 MG/ML 2 ML VIAL ONE ×2 (13:24→14:40)
[2022-11-03] MEDS ORDERED: DEXAMETHASONE SOD INJ 4 MG/ML VIAL ONE (13:24)
[2022-11-03] MEDS ORDERED: ROCURONIUM BROMIDE 10 MG/ML 5 ML VIAL IV ONE (13:24)
[2022-11-03] MEDS ORDERED: PROPOFOL IV EMULSION 10 MG/ML 20 ML VIAL IV ONE (13:24)
[2022-11-03] MEDS ORDERED: MIDAZOLAM HCL 1 MG/ML 2ML VIAL ONE (13:24)
[2022-11-03] MEDS ORDERED: LIDOCAINE 2% 2 ML VIAL/AMP(20MG/ML) INFIL ONE (13:24)
[2022-11-03] MEDS ORDERED: fentaNYL citrate 100 MCG/2 ML VIAL ONE ×2 (13:25→14:02)
[2022-11-03] MEDS ORDERED: BUPIVACAINE 0.5 % 5 MG/1 ML MPF 30ML VIAL ONE (13:27)
[2022-11-03] MEDS ORDERED: metroNIDAZOLE 500 MG/100 ML BAG IV SCH (14:00)
[2022-11-03] MEDS ORDERED: NEOSTIGMINE METHYLSULFATE 1 MG/ML 10ML VIAL ONE (14:33)
[2022-11-03] MEDS ORDERED: GLYCOPYRROLATE 0.2 MG/ML VIAL ONE (14:33)
[2022-11-03] MEDS ORDERED: KETOROLAC 30 MG/ML VIAL ONE (14:40)
--- NOTE | 2022-11-03 14:42 | Operative Report ---
PG Post Operative Report Pre & Post Diagnosis Operation Date: 11/03/22 12:50 Pre-Op Diagnosis: Acute cholecystitis Post-Op Diagnosis: Acute cholecystitis I identified the patient and participated in the time-out.: Yes Procedure Operation Date: 11/03/22 12:50 Actual Procedures p Laparoscopic Cholecystectomy(Not Applicable) - Arsen Saldana DO, FACS Surgeon Arsen Saldana DO, FACS Fuel Cell Builder Alyssa Bennett Estimated Blood Loss 10 Findings Consistent with Post-Op Diagnosis Acute cholecystitis. Critical view of safety obtained, cystic duct and artery doubly clipped and divided. Good hemostasis. Large gallstone. Specimens Gallbladder Anesthesia Type General Complications none Disposition Accompanied Patient To Recovery: No Disposition: Recovery Room Indications 32-year-old male with cholelithiasis and acute cholecystitis, plan for laparoscopic cholecystectomy with possible cholangiogram. The risks of the procedure were discussed, all questions were answered, and the patient agreed to proceed with surgery as planned. Description of Procedure The patient was properly identified, consented, and taken to the operating room where he was placed in the supine position. General endotracheal anesthesia was induced. SCDs and a safety belt were placed. Preoperative antibiotics were administered. The patient's abdomen was prepped and draped in the standard sterile fashion. A surgical timeout was performed and all parties were in agreement that this was the correct patient and procedure to be performed and we continued as planned. An incision was made superior and to the left of the umbilicus overlying the rectus muscle and the Veress needle was inserted. Saline drop test confirmed entry into the peritoneum. The abdomen was insufflated with carbon dioxide which the patient tolerated without incident. The abdomen was then entered using the Optiview technique and a 5 mm trocar. The laparoscope was inserted and no damage from initial trocar or Veress needle placement was noted, no gross abnormalities were noted within the 4 quadrants of the abdomen. An 11 mm port was placed in the subxiphoid position and two 5 mm ports were then placed in the right subcostal position. The patient was placed in reverse Trendelenburg position and rotated towards the left. The gallbladder was acutely inflamed. The dome of the gallbladder was retracted towards the left upper quadrant and the infundibulum was retracted toward the right lower quadrant revealing Calot's triangle. Peritoneal attachments were taken down with electrocautery and blunt dissection. There were 2 large nodes of Calot were dissected away from the artery. The cystic duct and artery were circumferentially dissected. A window of safety was obtained showing the cystic duct entering the gallbladder with no aberrant structures noted. The cystic duct and artery were doubly clipped and divided. The gallbladder was then lifted off the gallbladder fossa with electrocautery. The gallbladder was placed in an Endo Catch bag and removed through the subxiphoid port site. The subxiphoid incision and fascia had to be extended to accommodate the gallbladder and the large stone. The right upper quadrant was irrigated and hemostasis was found to be good. 5 mm trochars were removed under direct visualization and the abdomen was allowed to collapse. The subxiphoid port site fascia was closed with a running 0 Vicryl suture. The wound was irrigated, and the skin of all ports was closed with 4-0 Monocryl subcuticular sutures. Dermabond was placed over the wounds. The patient was extubated in the operating room and taken to the PACU where he recovered without apparent incident. All sponge, instrument and needle counts were correct at the conclusion of the procedure. The patient tolerated the procedure well. The physician's assistant property manager was present and scrubbed for the entirety of the case and was essential in positioning the patient, prepping and draping, retraction and exposure, driving the laparoscope, removal of the gallbladder, closure the incisions, and placement of the dressings. I attest to the content of the Intraoperative Record and any orders documented therein. Any exceptions are noted below.
[2022-11-03] MEDS ORDERED: HYDROmorphone INJ 2 MG/ML SYR/VIAL ONE (14:43)
[2022-11-03] MEDS: HYDROmorphone INJ 1 MG/ML SYRINGE IV PRN ×2 (15:22→15:27)
[2022-11-03] MEDS ORDERED: oxyCODONE/ACETAMINOPHEN 5mg/325mg TAB PO PRN ×2 (15:59)
[2022-11-03] MEDS ORDERED: MoRPHine SULFATE 2 MG/ML CARP IV PRN (15:59)
--- NOTE | 2022-11-03 16:21 | Anesthesiology Progress Note ---
Date of Service November 03, 2022 Anesthesia Post Procedure Vital Signs Vital Signs: Temp Pulse Pulse Pulse Resp BP BP 11/03/22 16:04 36.9 C 97 H 16 144/79 H 11/03/22 15:40 36.8 C 62 15 137/78 11/03/22 15:10 65 22 156/86 H 11/03/22 15:30 36.8 C 59 L 12 146/78 H 11/03/22 15:20 84 18 143/82 H 11/03/22 15:00 55 L 17 150/88 H 11/03/22 14:52 36.5 C 52 L 14 150/94 H 11/03/22 12:29 36.4 C L 72 18 149/81 H 11/03/22 08:59 36.8 C 60 16 130/80 11/03/22 08:00 68 7 L 11/03/22 07:30 66 12 11/03/22 07:30 121/70 11/03/22 07:11 79 22 11/03/22 07:11 125/78 11/03/22 06:30 87 25 H 11/03/22 06:30 125/57 L 11/03/22 06:00 70 17 11/03/22 06:00 125/73 11/03/22 05:33 11/03/22 05:00 63 19 128/70 11/03/22 05:43 64 11/03/22 04:30 59 L 15 136/72 11/03/22 04:00 64 19 127/68 11/03/22 03:30 58 L 17 124/73 11/03/22 03:00 68 17 124/73 11/03/22 02:30 64 18 124/68 11/03/22 02:00 53 L 13 126/64 11/03/22 01:46 63 18 127/72 11/03/22 01:46 57 L 11/03/22 01:06 36.8 C 71 18 127/73 Pulse Ox O2 Del Method O2 Flow Rate 11/03/22 16:04 97 Room Air 11/03/22 15:40 94 Room Air 11/03/22 15:10 100 Oxymask 3 11/03/22 15:30 100 Room Air 11/03/22 15:20 100 Oxymask 2 11/03/22 15:00 100 Oxymask 4 11/03/22 14:52 100 Oxymask 5 11/03/22 12:29 98 Room Air 11/03/22 08:59 96 Room Air 11/03/22 08:00 11/03/22 07:30 11/03/22 07:30 11/03/22 07:11 11/03/22 07:11 11/03/22 06:30 11/03/22 06:30 11/03/22 06:00 11/03/22 06:00 11/03/22 05:33 98 Room Air 11/03/22 05:00 96 Room Air 11/03/22 05:43 11/03/22 04:30 97 Room Air 11/03/22 04:00 97 Room Air 11/03/22 03:30 96 Room Air 11/03/22 03:00 98 Room Air 11/03/22 02:30 98 Room Air 11/03/22 02:00 97 Room Air 11/03/22 01:46 96 Room Air 11/03/22 01:46 11/03/22 01:06 100 Room Air Pain Intensity Right Upper Abdomen: Pain Intensity: 6 Transfer of Care Handoff Completed per policy Notes Mental Status: alert / awake / arousable Patient Amnestic to Procedure: Yes Nausea / Vomiting: adequately controlled Pain: adequately controlled Airway Patency, RR, SpO2: stable & adequate BP & HR: stable & adequate Hydration State: stable & adequate Anesthetic Complications: no major complications apparent
--- NOTE | 2022-11-04 14:04 | Discharge Summary ---
Date of Service November 03, 2022 Admission HPI Per Admitting Provider This is a 32-year-old male who presented to [facility] secondary to abdominal pain. He notes that the pain woke him up from sleep and was really unrelated to anything he ate last evening. He does note over the past several months when he does eat "greasy" foods he has been getting some right upper quadrant pain. He notes that in the past this pain was usually self-limiting and will resolve. He notes last night that his abdominal pain was much more severe and unremitting than what he usually experiences so he presented to the emergency department. He notes that the pain was located primarily in the right upper quadrant without radiation. He does not note any provocative factors. He does not note any palliative factors. He has never had abdominal surgery in the past. With his current presentation he did not have any fevers, shakes, or chills. He did not have any nausea or vomiting. Since arrival to the emergency department at [facility] the patient has had labs and imaging which I independently reviewed. CT scan of the abdomen and pelvis showed the patient had cholelithiasis with gallbladder wall thickening. These findings were concerning for cholecystitis. Labs include a CBC were white blood cell count, hemoglobin, hematocrit, and platelet count were all normal. Chemistry profile showed sodium, potassium, BUN, and creatinine were all normal. There is no elevation of patient's bilirubin alkaline phosphatase or AST. His ALT had a slight elevation at 64. Lipase was nonelevated. A COVID test has been ordered and is pending. At the time of my interview the patient was resting comfortably in bed and he is in no distress. Concerning past medical history the patient denies any medical problems Concerning past surgical history he denies any abdominal surgeries but notes that he did have some minor excision performed on his left upper extremity. Principal Diagnosis acute cholecystitis Discharge Exam awake/alert, no distress Respiratory normal respiratory effort Gastrointestinal (Abdomen) Inspection/Auscultation: + abdominal surgical incision (c/d/i) Percussion/Palpation: + abdomen tender (expected niurka incisional discomfort to palpation ) and abdomen soft Discharge Data Allergies Allergy/AdvReac Type Severity Reaction Status Date / Time ampicillin Allergy Intermediate HIVES Verified 11/03/22 01:30 sulbactam Allergy Intermediate HIVES Verified 11/03/22 01:30 Consultations 11/03/22 04:14 Consult General Surgery Stat Procedures Performed Operation Date: 11/03/22 12:50 Actual Procedures p Laparoscopic Cholecystectomy(Not Applicable) - Arsen Saldana DO, FACS Ordered Studies 11/03/22 01:19 CT abd pelvis IV con only Stat 11/03/22 04:29 US gallbladder Urgent Hospital Course (1) Acute cholecystitis: This is a 32yM who presented to the [facility] ED on 11/03/22 with abdominal pain. Workup in the ED showed a WBC of [address] a/p and RUQ US were obtained both concerning for acute cholecystitis. The patient was tender to palpation in the RUQ. Patient made NPO with IVF and booked for the OR. On 11/03 the patient went to the OR with Dr. Saldana for a laparoscopic cholecystectomy. The patient tolerated the procedure well, see operative report for full details. Post op eratively the patient's diet was advanced, pain managed on prn meds, and incisions clean/dry/intact. On POD#0 the patient was deemed stable for discharge to home. Total Time Total Time Spent Total Time Spent (In Minutes): 10 Discharge Plan Discharge Items Patient Disposition: Home - Self-Care Reason For Visit: STOMACH PAIN,SHARP PAIN Discharge Diagnosis: laparoscopic cholecystectomy Activity: Per Instructions section Lifting: No more than 10 pounds Bathing Comment: may shower starting 11/04/22; no soaking in tubs/pools Exercise/Sports: Wait until after follow-up appointment Driving/Machine Use: no driving while taking narcotics for pain Non-emergency contact: Surgeon Call non-emergency contact if: you have any medication questions, your symptoms worsen, your pain is not controlled, your pain is concerning for you, you have a fever, your temperature is above 101.5, your wound has increased redness, your wound has increased drainage and your wound pain has increased Follow-up/Referrals: Arsen Saldana DO, FACS [Physician] - 11/17/22 9:00 am (Please call to schedule follow up in clinic within 2 weeks ) PCP,NO [Primary Care Provider] - Diet: Regular Addtl Attending Provider Instructions: Pending Studies at Discharge: Yes Studies:: surgical pathology Stand-Alone Forms: My [facility], Smoking Cessation Medications and DC Order Prescriptions: New oxycodone-acetaminophen [Percocet] 5-325 mg tablet 1 - 2 tab PO .q4-6h PRN (Reason: pain, for initial therapy, max 6 tabs per day) Qty: 15 0RF Continued calcium carbonate [Tums] 200 mg calcium (500 mg) Tablet,Chewable 400 - 600 mg PO DIRECTED PRN (Reason: GI UPSET/INDIGESTION/HEARTBURN) Discharge Orders: Discharge Order (Routine); Ordered 11/03/22 Ordered By: Alyssa Bennett Admission Data Admit Date/Time: 11/03/22 04:34 Attending Provider: Arsen Saldana Admit Provider: Arsen Saldana Primary Care Provider: PCP,NO Other Providers: Arsen Saldana Other Interventions: Discharge Summary Assessment (RN) Last Done: 11/03/22 17:49 Coding Level of Care Code 56589 IN/OBS DISCH 30 MIN/LESS Diagnoses Acute cholecystitis K81.0
== END 2022-11-03 18:20 | disposition home or self-care (01) | DRG 419 ==
LOC: ED 01:00 → 3W 04:34